=== PATIENT | female | born 1985 | race Caucasian/White ===

== ENCOUNTER 2020-08-25 12:53 | Inpatient (IN) | payer BC ==
[2020-08-25] MEDS ORDERED: KETOROLAC 15 MG/ML 1 ML VIAL IVP STA (14:17)
[2020-08-25 14:32] LABS: Basophils % (A) 0 %; Eosinophils # (A) 0.1 k/uL (0-0.7); Eosinophils % (A) 3 %; HCT 37.6 % (34.0-46.0); HGB 12.4 gm/dL (11.4-16.0); Lymphocytes # (A) 0.8 k/uL (1.0-4.8); Lymphocytes % (A) 18 %; MCH 29.6 pg (25.0-35.0); MCHC 33.1 g/dL (31.0-37.0); MCV 89.3 fL (80.0-100.0); Mean Platelet Volume 8.5; Monocytes # (A) 0.3 k/uL (0-1.0); Monocytes % (A) 6 %; Neutrophils # (A) 3.3 k/uL (1.3-7.7); Neutrophils % (A) 72 %; Platelet Count 204 k/uL (150-450); RBC 4.21 m/uL (3.80-5.40); RDW 13.6 % (11.5-15.5); WBC 4.6 k/uL (3.8-10.6)
--- NOTE | 2020-08-25 14:35 | ED ---
Upper Extremity HPI - General Chief Complaint: Extremity Injury, Upper Stated Complaint: Lt Elbow Pain Time Seen by Provider: 08/25/20 14:15 Source: patient Mode of arrival: ambulatory Limitations: no limitations - History of Present Illness Initial Comments: Patient is a 35-year-old female presenting to the emergency Department with complaints of increasing left elbow pain over the past week. Patient states that 4 days ago she noticed some discomfort in her left elbow, no obvious falls or trauma. She states she did extend her elbow that day and did pop however she was having pain before that. She denies any previous injuries or surgeries to her left elbow. She denies any fevers or chills. She states the pain has been rapidly progressing, she can no longer move it on her own, she noticed swelling and some redness as well. She's never had anything like this before. She denies taking any medications. She did try some ibuprofen a few days ago, did not help. She describes her pain as a 9/10 today. Any sort of movement increases the pain over 10. She is breast-feeding. She has no further complaints. Upon arrival to the ER, her vitals are stable. - Related Data Home Medications Medication Instructions Recorded Confirmed No Known Home Medications 08/25/20 08/25/20 Allergies Allergy/AdvReac Type Severity Reaction Status Date / Time amoxicillin Allergy Unknown Verified 08/25/20 14:44 Childhood Penicillins Allergy Rash/Hives Verified 08/25/20 14:44 Sulfa (Sulfonamide Allergy Unknown Verified 08/25/20 14:44 Antibiotics) Childhood Review of Systems ROS Statement: Those systems with pertinent positive or pertinent negative responses have been documented in the HPI. ROS Other: All systems not noted in ROS Statement are negative. Past Medical History Past Medical History: No Reported History History of Any Multi-Drug Resistant Organisms: None Reported Past Surgical History: Ear Surgery Past Psychological History: No Psychological Hx Reported Smoking Status: Never smoker Past Alcohol Use History: None Reported Past Drug Use History: None Reported General Exam - General Exam Comments Initial Comments: GENERAL: Patient is well-developed and well-nourished. Patient is nontoxic and in mild distress. HEAD: Atraumatic, normocephalic. EYES: Pupils equal round and reactive to light, extraocular movements intact, sclera anicteric, conjunctiva are normal. Eyelids were unremarkable. ENT: TMs normal, nares patent, oropharynx clear without exudates. Moist mucous membranes. NECK: Normal range of motion, supple without lymphadenopathy or JVD. LUNGS: Unlabored respirations. Breath sounds clear to auscultation bilaterally and equal. No wheezes rales or rhonchi. HEART: Regular rate and rhythm without murmurs, rubs or gallops. ABDOMEN: Soft, nontender, normoactive bowel sounds. No guarding, no rebound. No masses appreciated. : Deferred MUSCULOSKELETAL: Patient has severe tenderness all around left elbow, there is some moderate swelling around the joint, there is some erythema as well. Any sort of active r yudelka of motion increases her pain. 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 No clubbing or cyanosis. NEUROLOGICAL: Patient is alert and oriented x 3. Motor and sensory are also intact. Cranial nerves II through XII grossly intact. Symmetrical smile. Normal speech, normal gait. PSYCH: Normal mood, normal affect. SKIN: Warm, Dry, normal turgor, no rashes or lesions noted. Limitations: no limitations Course Vital Signs 08/25/20 08/25/20 08/25/20 13:04 16:07 18:42 Temperature 97.8 F 99.4 F 99.0 F Pulse Rate 89 67 89 Respiratory 19 16 16 Rate Blood Pressure 113/78 108/54 112/60 O2 Sat by Pulse 99 96 99 Oximetry Medical Decision Making - Medical Decision Making Patient is a 35-year-old female here for increasing left elbow pain over the past 4-5 days. She does have severe tenderness along the entire left elbow, moderate swelling and some erythema. Her pain increases severely with any sort of active range of motion. No fevers, her vitals are stable. Labs show a normal white count, ESR is 30, CRP is 7.1. Vital signs are stable. I discussed case with on-call orthopedics, Iris Oneill. Iris was able to come in and do an arthrocentesis of the left elbow joint. Given the results of aspiration, they did recommend surgical cleanout. Patient is in agreement with this plan of care. Patient will be admitted under Dr. Garcia with consult to Dr. Mariscal. Patient is in agreement with this plan of care. Case discussed with Dr. Fuller. - Lab Data Result diagrams: 08/25/20 14:18 08/25/20 14:18 Lab Results 08/25/20 08/25/20 08/25/20 Range/Units 14:18 14:18 14:18 WBC 4.6 (3.8-10.6) k/uL RBC 4.21 (3.80-5.40) m/uL Hgb 12.4 (11.4-16.0) gm/dL Hct 37.6 (34.0-46.0) % MCV 89.3 (80.0-100.0) fL MCH 29.6 (25.0-35.0) pg MCHC 33.1 (31.0-37.0) g/dL RDW 13.6 (11.5-15.5) % Plt Count 204 (150-450) k/uL MPV 8.5 Neutrophils % 72 % Lymphocytes % 18 % Monocytes % 6 % Eosinophils % 3 % Basophils % 0 % Neutrophils # 3.3 (1.3-7.7) k/uL Lymphocytes # 0.8 L (1.0-4.8) k/uL Monocytes # 0.3 (0-1.0) k/uL Eosinophils # 0.1 (0-0.7) k/uL Basophils # 0.0 (0-0.2) k/uL ESR 30 H (0-20) mm/hr Sodium 138 (137-145) mmol/L Potassium 4.4 (3.5-5.1) mmol/L Chloride 103 (98-107) mmol/L Carbon Dioxide 25 (22-30) mmol/L Anion Gap 10 mmol/L BUN 8 (7-17) mg/dL Creatinine 0.58 (0.52-1.04) mg/dL Est GFR (CKD-EPI)AfAm >90 (>60 ml/min/1.73 sqM) Est GFR (CKD-EPI)NonAf >90 (>60 ml/min/1.73 sqM) Glucose 77 (74-99) mg/dL Uric Acid 3.6 L (3.7-7.4) mg/dL Calcium 9.5 (8.4-10.2) mg/dL Total Bilirubin 1.8 H (0.2-1.3) mg/dL AST 33 (14-36) U/L ALT 32 (4-34) U/L Alkaline Phosphatase 114 (38-126) U/L C-Reactive Protein 7.1 H (<1.0) mg/dL Total Protein 7.4 (6.3-8.2) g/dL Albumin 4.5 (3.5-5.0) g/dL Coronavirus (PCR) (Not Detectd) 08/25/20 Range/Units 15:05 WBC (3.8-10.6) k/uL RBC (3.80-5.40) m/uL Hgb (11.4-16.0) gm/dL Hct (34.0-46.0) % MCV (80.0-100.0) fL MCH (25.0-35.0) pg MCHC (31.0-37.0) g/dL RDW (11.5-15.5) % Plt Count (150-450) k/uL MPV Neutrophils % % Lymphocytes % % Monocytes % % Eosinophils % % Basophils % % Neutrophils # (1.3-7.7) k/uL Lymphocytes # (1.0-4.8) k/uL Monocytes # (0-1.0) k/uL Eosinophils # (0-0.7) k/uL Basophils # (0-0.2) k/uL ESR (0-20) mm/hr Sodium (137-145) mmol/L Potassium (3.5-5.1) mmol/L Chloride (98-107) mmol/L Carbon Dioxide (22-30) mmol/L Anion Gap mmol/L BUN (7-17) mg/dL Creatinine (0.52-1.04) mg/dL Est GFR (CKD-EPI)AfAm (>60 ml/min/1.73 sqM) Est GFR (CKD-EPI)NonAf (>60 ml/min/1.73 sqM) Glucose (74-99) mg/dL Uric Acid (3.7-7.4) mg/dL Calcium (8.4-10.2) mg/dL Total Bilirubin (0.2-1.3) mg/dL AST (14-36) U/L ALT (4-34) U/L Alkaline Phosphatase (38-126) U/L C-Reactive Protein (<1.0) mg/dL Total Protein (6.3-8.2) g/dL Albumin (3.5-5.0) g/dL Coronavirus (PCR) Not Detected (Not Detectd) Disposition Clinical Impression: Septic joint of left elbow Disposition: ADMITTED IP TO THIS HOSP Condition: Stable Decision Date: 08/25/20 Decision Time: 16:16
[2020-08-25 14:47] LABS: ALT 32 U/L (4-34); AST 33 U/L (14-36); African American GFR (CKD) >90 (>60 ml/min/1.73 sqM); Albumin 4.5 g/dL (3.5-5.0); Alkaline Phosphatase 114 U/L (38-126); Anion Gap 10 mmol/L; Blood Urea Nitrogen 8 mg/dL (7-17); C Reactive Protein 7.1 mg/dL (<1.0); Calcium 9.5 mg/dL (8.4-10.2); Carbon Dioxide 25 mmol/L (22-30); Chloride 103 mmol/L (98-107); Glucose 77 mg/dL (74-99); Non-African American GFR(CKD) >90 (>60 ml/min/1.73 sqM); Potassium 4.4 mmol/L (3.5-5.1); Sodium 138 mmol/L (137-145); Total Bilirubin 1.8 mg/dL (0.2-1.3); Total Protein 7.4 g/dL (6.3-8.2)
--- NOTE | 2020-08-25 14:58 | XR ---
EXAMINATION TYPE: XR elbow complete LT DATE OF EXAM: 08/25/2020 CLINICAL HISTORY: Pain and swelling. Patient is unable to straighten elbow. No known injury. TECHNIQUE: Frontal, lateral and oblique images of the left elbow are obtained. COMPARISON: None FINDINGS: The study is limited in evaluation due to patient's inability to position. No definite evid ence of fracture or dislocation of the left elbow. There may be a slightly elevated anterior fat pad. No definite evidence of radial head fracture although occult fracture is not excluded.. The supracon dylar humerus appears unremarkable. The distal humerus appears unremarkable. IMPRESSION: 1. This study is limited due to patient's inability to position. There is appearance of a mildly elev ated anterior fat pad. No definite evidence of radial head fracture although an occult fracture is no t excluded.
[2020-08-25] MEDS ORDERED: MORPHINE SULFATE 4 MG/ML SYRINGE IVP STA (15:00)
[2020-08-25 16:11] LABS: Erythrocyte Sedimentation Rate 30 mm/hr (0-20)
[2020-08-25] MEDS ORDERED: KETOROLAC 15 MG/ML 1 ML VIAL IVP PRN (16:14)
[2020-08-25] MEDS ORDERED: MORPHINE SULFATE 4 MG/ML SYRINGE IV PRN (16:14)
[2020-08-25] MEDS ORDERED: ONDANSETRON 4 MG/2 ML VIAL IVP PRN (16:14)
[2020-08-25] MEDS ORDERED: NALOXONE 0.4 MG/ML 1 ML VIAL IV PRN (16:14)
[2020-08-25] MEDS ORDERED: VANCOMYCIN IV PER PHARMACY 1 EACH MISC MISCELLANE PRN ×2 (16:15→18:32)
[2020-08-25] MEDS ORDERED: LIDOCAINE 1% INJ 10MG/ML (20 ML MDV) SQ ONE (16:36)
[2020-08-25] MEDS ORDERED: VANCOMYCIN 1,250 MG in SODIUM CHLORIDE 0.9% 250 ML IVPB ONE (17:00)
[2020-08-25 17:50] LABS: Appearance,BF Cloudy; RBC, Body Fluid 13850 /uL
[2020-08-25 17:51] LABS: Nucleated Cells, Body Fluid 21650 /uL
[2020-08-25 17:58] LABS: Mononuclear WBC,Body Fluid 3 %; Polynuclear WBC,Body Fluid 97 %; Total Cells Counted,Body Fluid 100
--- NOTE | 2020-08-25 18:31 | P.HPOR ---
History of Present Illness H&P Date: 08/25/20 Chief Complaint: Left elbow pain Patient is a 35-year-old female presenting to the emergency Department with complaints of increasing left elbow pain over the past week. Patient states that 4 days ago she noticed some discomfort in her left elbow, no obvious falls or trauma. She states she did extend her elbow that day and did pop however she was having pain before that. She denies any previous injuries or surgeries to her left elbow. She denies any fevers or chills. She states the pain has been rapidly progressing, she can no longer move it on her own, she noticed swelling and some redness as well. She's never had anything like this before. She states that she did have a wound on whenever fingers on the right hand within the last month that was slow to heal and had a scab for a long time. There is no obvious infection at that time. She denies taking any medications. She did try some ibuprofen a few days ago, did not help. She describes her pain as a 9/10 today. Any sort of movement increases the pain over 10. She is breast- feeding. She has no further complaints. Upon arrival to the ER, her vitals are stable. We are consulted for orthopedic evaluation for possible septic arthritis of the elbow. Past Medical History Past Medical History: No Reported History History of Any Multi-Drug Resistant Organisms: None Reported Past Surgical History: Ear Surgery Past Psychological History: No Psychological Hx Reported Smoking Status: Never smoker Past Alcohol Use History: None Reported Past Drug Use History: None Reported Medications and Allergies Home Medications Medication Instructions Recorded Confirmed Type No Known Home Medications 08/25/20 08/25/20 History Allergies Allergy/AdvReac Type Severity Reaction Status Date / Time amoxicillin Allergy Unknown Verified 08/25/20 14:44 Childhood Penicillins Allergy Rash/Hives Verified 08/25/20 14:44 Sulfa (Sulfonamide Allergy Unknown Verified 08/25/20 14:44 Antibiotics) Childhood Physical Examination This is a pleasant 35-year-old female in no acute distress. She is alert and oriented to person place and time. Her is present at bedside. Exam of the left elbow reveals erythema and edema. There is an obvious joint effusion. She has significantly limited range of motion of the elbow. She is unable to extend or flex the elbow. She is holding the arm in about a 70 angle. She is able to move the wrist and fingers. Neurovascular status the upper extremity is intact. Results X-rays of the elbow reveal no bony abnormality. There is obvious joint effusion on x-ray. - Labs Labs: Abnormal Lab Results - Last 24 Hours (Table) 08/25/20 08/25/20 08/25/20 Range/Units 14:18 14:18 14:18 Lymphocytes # 0.8 L (1.0-4.8) k/uL ESR 30 H (0-20) mm/hr Uric Acid 3.6 L (3.7-7.4) mg/dL Total Bilirubin 1.8 H (0.2-1.3) mg/dL C-Reactive Protein 7.1 H (<1.0) mg/dL H & H 08/25/20 Range/Units 14:18 Hgb 12.4 (11.4-16.0) gm/dL Hct 37.6 (34.0-46.0) % Result Diagrams: 08/25/20 14:18 08/25/20 14:18 Assessment and Plan (1) Septic joint of left elbow Current Visit: Yes Status: Acute Code(s): M00.9 - PYOGENIC ARTHRITIS, UNSPECIFIED SNOMED Code(s): 866603695 Plan: The clinical and x-ray findings are discussed with the patient and her . I did aspirate the elbow obtained approximately 6 mL of a rust colored joint fluid. There is no obvious purulence to the fluid. Fluid was sent for stat Gram stain which was unable to be performed evening in our lab. Stat cell count revealed nucleated cells 21,650, red blood cells 13,850 with 97% polynuclear cells. The patient tolerated the aspiration well. Results were discussed with Dr. Dunlap who feels that the best course of action would be to take the patient to surgery for irrigation and debridement of the elbow and place her on IV antibiotics. The procedures discussed in detail including the possible risks and outcomes of surgery. She is aware that she most likely will be inpatient for at least 48 hours postoperatively.
[2020-08-25] MEDS ORDERED: KETOROLAC 15 MG/ML 1 ML VIAL ONE (19:21)
[2020-08-25] MEDS ORDERED: ONDANSETRON 4 MG/2 ML VIAL ONE (19:21)
[2020-08-25] MEDS ORDERED: LIDOCAINE 1% INJ 10MG/ML (20 ML MDV) ONE (19:21)
[2020-08-25] MEDS ORDERED: fentaNYL (PF) 50 MCG/ML 2 ML AMP ONE (19:21)
[2020-08-25] MEDS ORDERED: PROPOFOL 10 MG/ML 20 ML VIAL IV ONE (19:21)
[2020-08-25] MEDS ORDERED: DEXAMETHASONE SOD PHOSPHATE 4 MG/ML 1 ML VIAL ONE (19:21)
[2020-08-25] MEDS ORDERED: SUCCINYLCHOLINE CHLORIDE 100 MG/5 ML SYR IV ONE (19:21)
[2020-08-25] MEDS ORDERED: MIDAZOLAM 2 MG/2 ML VIAL ONE (19:21)
[2020-08-25] MEDS ORDERED: SODIUM CHLORIDE 0.9% 1,000 ML IV ONE (19:23)
[2020-08-25] MEDS ORDERED: CLINDAMYCIN 1,800 MG in SODIUM CHLORIDE 0.9% IRRIGATIO 3,000 ML IRRIGATION ONE (19:51)
[2020-08-25] MEDS ORDERED: HYDROmorphone 0.5 MG/0.5 ML SYRINGE IVP ONE (20:14)
[2020-08-25] MEDS ORDERED: ACETAMINOPHEN TAB 325 MG TAB PO PRN (20:58)
--- NOTE | 2020-08-25 21:07 | P.OP ---
Date of Procedure: 08/25/20 Procedure(s) Performed: PREOPERATIVE DIAGNOSES: 1. Left elbow possible septic arthritis POSTOPERATIVE DIAGNOSES: 1. Left elbow possible septic arthritis PROCEDURES PERFORMED: 1. Left elbow incision and drainage of joint with irrigation and closure over neil drain ANESTHESIA: Gen. MOONER: None COMPLICATIONS: None ESTIMATED BLOOD LOSS: 5 mL. DISPOSITION: To post-anesthesia care unit INDICATIONS: João knee is a 35-year-old female who has a history of swelling, redness, pain, limited motion, and high cell count neutrophilic effusion in the elbow on recent aspiration. She has high sed rate and c-reactive protein levels, although the WBC is normal. Recent aspirate from the elbow showed lynnette brown fluid but not gross pus. Considering the high neutrophil count and symptoms of redness, swelling, pain, and severe pain with motion, we have discussed that these symptoms may indicate a septic arthritis of the elbow. I have recommended surgical incision and drainage with irrigation and operative cultures for definitive management. I have discussed that if we do not proceed, there is a risk of severe post-infectious arthritis if this turns out to be a true bacterially-mediated septic arthritis. For these reasons and after full and detailed explanation of the risks and potential complications, the patient wishes to proceed with operative intervention. I have described the risks and potential complications as being inclusive of, but not limited to: Bleeding, infection, scarring, discomfort, blood vessel and/or nerve damage, persistent infection, osteomyelitis, involvement of the tendon of the triceps, stiffness, persistent swelling, weakness, sepsis, chronic wound, loss of limb and/or life, blood clot, pulmonary embolism, and other risks. The patient is aware these risks and wishes to proceed with surgery. Consent form has been signed. PROCEDURE: After appropriate consent was obtained, the patient was taken to the operating room placed in the supine position. Anesthesia was initiated, and after confirmation of adequate anesthesia, the patient was carefully positioned. Care was taken to make sure that all pressure points were adequately padded. Prepping and draping were completed in the usual aseptic fashion using ChloraPrep. Timeout was called, confirming patient identity, side, procedure, and administration of antibiotics. Antibiotics were held until cultures were performed. Arm was elevated and tourniquet was inflated to 250 mg. An incision was created directly over the posterolateral aspect of the elbow just posterior to the lateral epicondyle for a distance of approximately 4 cm. it was taken through the anconeus muscle and to the bulging joint capsule. This capsule, upon incision, yielded a moderate amount of lynnette brown colored fluid. Operative cultures were taken x2 and a small amount of mucus from the joint was also sent to pathology for analysis. The capsular incision was expanded so that full access to the radiocapitellar and ulnohumeral joints was established. Care was taken to stay posterior to the lateral epicondyle to avoid risk to the radial collateral ligament. Thorough irrigation with 3 liters of pulsatile saline containing 1800 mg clindamycin was delivered into the elbow joint. The visuali zed portion of the joint surfaces were noted to be pristine and without defect. Tourniquet was then deflated and hemostasis was obtained using electrocautery and local pressure. Wound was loosely closed over a Sassafras drain using interrupted 4-0 nylon sutures. Sterile dressing was applied followed by minimally compressive Bryan wrap and sling. Patient tolerated the procedure well and taken to recovery room in stable condition. Sponge and needle counts were correct
[2020-08-25] MEDS: IBUPROFEN 200 MG TAB PO SCH (21:54)
--- NOTE | 2020-08-25 22:01 | P.CONS ---
History of Present Illness - Reason for Consult Consult date: 08/25/20 Medical management Requesting physician: Todd Garcia - Chief Complaint Left elbow swelling - History of Present Illness Consultation: This is a pleasant 35-year-old patient who follows with Dr. Benito. Patient rather in good health and does not take any medications at home. About 4 days ago patient started noticing pain and discomfort in the left elbow on the out side and it progressively got worse swollen tender. Patient does not remember any local injury. Denies any callus on the elbow. Has not had any any fever and chills. Range of motion became limited at the elbow. Presented to the ER and was suspected to have septic arthritis. Dr. garcia was contacted from the ER. He took the patient to the operating room earlier today. And described a dark lynnette aspect of the joint. Patient's left elbow in the Bryan wrap left arm in a sling. Patient did have a infection of the distal phalanx of the right middle finger that healed about 7-10 days ago. No other source of infection the body's been determined. Patient also has a 1-year-old child that she is breast- feeding. Patient was ordered vancomycin from the ER patient has not received the same. Postprocedure patient is tired Review of systems: GEN.: Tired EYES: None HEENT: None NECK: None RESPIRATORY: None CARDIOVASCULAR: None GASTROINTESTINAL: None GENITOURINARY: None MUSCULOSKELETAL: As above LYMPHATICS: None HEMATOLOGICAL: None PSYCHIATRY: None NEUROLOGICAL: None Past medical history to include: Unremarkable. Social history: Does not smoke or drink alcohol. . 6 children at home Family history: Reviewed, noncontributory to presentation Physical examination: VITAL SIGNS: 97.7, 69, 16, 114/66, 98% on room air GENERAL: BMI 23.9, reclining in bed, tired. EYES: Pupils equal. Conjunctiva normal. HEENT: External appearance of nose and ears normal, oral cavity grossly normal. NECK: JVD not raised; masses not palpable. HEART: First and second heart sounds are normal; no edema. LUNGS: Respiratory rate normal; clear to auscultation. ABDOMEN: Soft, nontender, liver spleen not palpable, no masses palpable. PSYCH: Awake tired; mood and affect normal. MUSCULAR skeletal: Left elbow in the Bryan wrap, left arm in a sling NEUROLOGICAL: Cranial nerves grossly intact; no facial asymmetry, power and sensation grossly intact. LYMPHATICS: No lymph nodes palpable in the axilla and neck INVESTIGATIONS, reviewed in the clinical context: WBC 4.6 hemoglobin 12.4 platelets 204 ESR 13 potassium 4.4 creatinine 0.58 CRP 7.1 Left elbow fluid aspirated: Cloudy, RBC [id number] WBC 97 Coronavirus [PCF]: Not detected Assessment and plan: -This is a patient of 4 days of progressive pain swelling tenderness of the left elbow. In a patient rather good health. Patient had a lynnette-appearing fluid that was aspirated. Does not remember any local trauma. This could be a mild septic arthritis, the source of infection being the right middle distal phalanx. Patient now status post I&D. *Patient IV Ancef. Patient also has got pain medicines and IV fluids in place. -Mxcnxk-nryddli-6-year-old child. Discussed with pharmacy. Seems to give IV Ancef and told the patient to use a breast pump for the same. -DVT prophylaxis Subcu Lovenox Care was discussed with the patient at the bedside. Questions answered. Thank you Dr. Garcia Past Medical History Past Medical History: No Reported History History of Any Multi-Drug Resistant Organisms: None Reported Past Surgical History: Ear Surgery Past Psychological History: No Psychological Hx Reported Smoking Status: Never smoker Past Alcohol Use History: None Reported Past Drug Use History: None Reported Medications and Allergies Home Medications Medication Instructions Recorded Confirmed Type No Known Home Medications 08/25/20 08/25/20 History Allergies Allergy/AdvReac Type Severity Reaction Status Date / Time amoxicillin Allergy Unknown Verified 08/25/20 14:44 Childhood Penicillins Allergy Rash/Hives Verified 08/25/20 14:44 Sulfa (Sulfonamide Allergy Unknown Verified 08/25/20 14:44 Antibiotics) Childhood Physical Exam Vitals: Vital Signs Temp Pulse Pulse Resp BP BP Pulse Ox 08/25/20 20:46 69 16 114/66 98 08/25/20 20:31 71 16 108/69 99 08/25/20 20:15 70 16 105/57 95 08/25/20 20:07 97.7 F 88 14 106/59 98 08/25/20 18:42 99.0 F 89 16 112/60 99 08/25/20 16:07 99.4 F 67 16 108/54 96 08/25/20 13:04 97.8 F 89 19 113/78 99 Intake and Output 08/25/20 08/25/20 08/25/20 06:59 14:59 22:59 Intake Total 501 Output Total 5 Balance 496 Intake: IV 501 Output: Estimated Blood Loss 5 Other: Weight 61.235 kg Results CBC & Chem 7: 08/25/20 14:18 08/25/20 14:18 Labs: Abnormal Lab Results - Last 24 Hours (Table) 08/25/20 08/25/20 08/25/20 Range/Units 14:18 14:18 14:18 Lymphocytes # 0.8 L (1.0-4.8) k/uL ESR 30 H (0-20) mm/hr Uric Acid 3.6 L (3.7-7.4) mg/dL Total Bilirubin 1.8 H (0.2-1.3) mg/dL C-Reactive Protein 7.1 H (<1.0) mg/dL
[2020-08-26] MEDS ORDERED: VANCOMYCIN 1,000 MG in SODIUM CHLORIDE 0.9% 250 ML IVPB SCH (04:00)
[2020-08-26 06:10] LABS: Basophils % (A) 0 %; Eosinophils % (A) 0 %; HCT 38.3 % (34.0-46.0); HGB 12.4 gm/dL (11.4-16.0); Lymphocytes # (A) 0.4 k/uL (1.0-4.8); Lymphocytes % (A) 14 %; MCH 29.4 pg (25.0-35.0); MCHC 32.2 g/dL (31.0-37.0); MCV 91.3 fL (80.0-100.0); Mean Platelet Volume 8.1; Monocytes # (A) 0.1 k/uL (0-1.0); Monocytes % (A) 5 %; Neutrophils # (A) 2.4 k/uL (1.3-7.7); Neutrophils % (A) 81 %; Platelet Count 213 k/uL (150-450); RDW 13.6 % (11.5-15.5)
--- NOTE | 2020-08-26 08:32 | P.PN ---
Subjective Progress Note Date: 08/26/20 Principal diagnosis: Septic arthritis left elbow. This is a 35-year-old female who is postop day #1 status post incision and drainage with antibiotic solution irrigation left elbow. She is doing fairly well from an orthopedic standpoint. She has no new complaints or concerns. Pain is fairly well managed with Tylenol and ibuprofen. She is afebrile. Vital signs are stable. Objective - Vital Signs Vital signs: Vital Signs Temp 97.9 F 08/25/20 21:20 Pulse 45 L 08/26/20 02:00 Resp 16 08/25/20 21:20 BP 85/52 08/26/20 02:00 Pulse Ox 96 08/26/20 02:00 Intake & Output 08/25/20 08/26/20 08/26/20 18:59 06:59 18:59 Intake Total 501 Output Total 155 Balance 346 Weight 61.235 kg 61.235 kg Intake: IV 501 Output: Urine 150 Estimated Blood Loss 5 Other: # Voids 4 - Exam This is a pleasant 35-year-old female in no acute distress. She is alert and oriented 3. Exam of the left elbow after dressing is removed reveals less erythema today. Less swelling. The incision looks good. There is a Shruti drain exiting the proximal aspect of the incision. She has improved extension of the elbow today. She still has difficulty with flexion past about 70. She has full wrist and finger motion without difficulty or pain. Neurovascular status to the upper extremity is intact. - Labs CBC & Chem 7: 08/26/20 05:32 08/25/20 14:18 Labs: Abnormal Lab Results - Last 24 Hours (Table) 08/25/20 08/25/20 08/25/20 Range/Units 14:18 14:18 14:18 WBC (3.8-10.6) k/uL Lymphocytes # 0.8 L (1.0-4.8) k/uL ESR 30 H (0-20) mm/hr Uric Acid 3.6 L (3.7-7.4) mg/dL Total Bilirubin 1.8 H (0.2-1.3) mg/dL C-Reactive Protein 7.1 H (<1.0) mg/dL 08/26/20 Range/Units 05:32 WBC 3.0 L (3.8-10.6) k/uL Lymphocytes # 0.4 L (1.0-4.8) k/uL ESR (0-20) mm/hr Uric Acid (3.7-7.4) mg/dL Total Bilirubin (0.2-1.3) mg/dL C-Reactive Protein (<1.0) mg/dL Microbiology - Last 24 Hours (Table) 08/25/20 19:59 Tissue Culture - Preliminary Elbow - Left 08/25/20 17:17 Body Fluid Culture - Preliminary Aspirate 08/25/20 19:59 Anaerobic Culture - Preliminary Elbow - Left 08/25/20 19:59 Wound Culture - Preliminary Elbow - Left 08/25/20 19:59 Wound Culture - Preliminary Elbow - Left 08/25/20 19:59 Anaerobic Culture - Preliminary Elbow - Left Assessment and Plan (1) Septic joint of left elbow Current Visit: Yes Status: Acute Code(s): M00.9 - PYOGENIC ARTHRITIS, UNSPECIFIED SNOMED Code(s): 225311370 Plan: The clinical findings are discussed with the patient. Nursing staff is present at time of the exam. The incision is redressed with nonstick dressing, ABDs and Bryan wrap. We are waiting infectious disease consultation. The patient is anxious to get home as soon as possible. We did discuss that cultures typically take at least 48 hours to result. Once antibiotics are arranged for home she may be discharged from an orthopedic standpoint.
[2020-08-26] MEDS: IBUPROFEN 200 MG TAB PO SCH ×3 (08:37→20:33)
[2020-08-26] MEDS ORDERED: VANCOMYCIN IV PER PHARMACY 1 EACH MISC MISCELLANE PRN (12:44)
[2020-08-26] MEDS: VANCOMYCIN 1,000 MG in SODIUM CHLORIDE 0.9% 250 ML IVPB SCH ×2 (13:58→20:40)
--- NOTE | 2020-08-26 16:15 | P.PN ---
Progress Note - Text Progress Note Date: 08/26/20 - Chief Complaint Left elbow swelling Consultation: This is a pleasant 35-year-old patient who follows with Dr. Benito. Patient rather in good health and does not take any medications at home. About 4 days ago patient started noticing pain and discomfort in the left elbow on the outside and it progressively got worse swollen tender. Patient does not remember any local injury. Denies any callus on the elbow. Has not had any any fever and chills. Range of motion became limited at the elbow. Presented to the ER and was suspected to have septic arthritis. Dr. louise was contacted from the ER. He took the patient to the operating room earlier today. And described a dark leroy aspect of the joint. Patient's left elbow in the Bryan wrap left arm in a sling. Patient did have a infection of the distal phalanx of the right middle finger that healed about 7-10 days ago. No other source of infection the body's been determined. Patient also has a 1-year-old child that she is breast- feeding. Patient's left palpable was I&D last night. Leroy brown fluid was obtained. Today: Dressing was changed by orthopedics to the left elbow. Patient's form awake. Some pain in the left elbow. No fever no chills. Oral intake better. at the bedside with a 1-year-old child. Review of systems: Was done for constitutional, cardiovascular, GI, pulmonary. relevant finding as above Active Medications Acetaminophen (Acetaminophen Tab 325 Mg Tab) 325 mg PO Q4HR PRN PRN Reason: Fever and/ or Pain Vancomycin HCl 1,000 mg/ (Sodium Chloride) 250 mls @ 125 mls/hr IVPB Q8H [facility] Last Admin: 08/26/20 13:58 Dose: 125 mls/hr Documented by: Ibuprofen (Ibuprofen 200 Mg Tab) 200 mg PO TID [facility] Last Admin: 08/26/20 15:34 Dose: 200 mg Documented by: Naloxone HCl (Naloxone 0.4 Mg/Ml 1 Ml Vial) 0.2 mg IV Q2M PRN PRN Reason: Opioid Reversal Ondansetron HCl (Ondansetron 4 Mg/2 Ml Vial) 4 mg IVP Q8HR PRN PRN Reason: Nausea And Vomiting Past medical history to include: Unremarkable. Social history: Does not smoke or drink alcohol. . 6 children at home Family history: Reviewed, noncontributory to presentation Physical examination: VITAL SIGNS: 98.1, 55, 16, 84/53, 98% on room air GENERAL: reclining in bed, comfortable. EYES: Pupils equal. Conjunctiva normal. HEENT: External appearance of nose and ears normal, oral cavity grossly normal. NECK: JVD not raised; masses not palpable. HEART: First and second heart sounds are normal; no edema. LUNGS: Respiratory rate normal; clear to auscultation. ABDOMEN: Soft, nontender, liver spleen not palpable, no masses palpable. PSYCH: AO 3, mood and affect normal. MUSCULAR skeletal: Left elbow in the Bryan wrap, left arm in a sling INVESTIGATIONS, reviewed in the clinical context: August 26: WBC 3 hemoglobin 12.4 lymphocytes 0.4 ESR 41 CRP 7.4 WBC 4.6 hemoglobin 12.4 platelets 204 ESR 13 potassium 4.4 creatinine 0.58 CRP 7.1 Left elbow fluid aspirated: Cloudy, RBC 70249 WBC 97 Coronavirus [PCF]: Not detected Assessment and plan: -This is a patient of 4 days of progressive pain swelling tenderness of the left elbow. In a patient rather good health. Patient had a leroy-appearing fluid that was aspirated. Does not remember any local trauma. Questionable mild septic arthritis, the source of infection being the right middle distal phalanx. Patient now status post I&D. There is no fever. No chills. No white count. Started on IV vancomycin per ID. -Kqyphx-[id number]-4-year-old child. -DVT prophylaxis Subcu Lovenox -Elevated ESR, CRP Inflammatory markers Care was discussed with Dr. Kang from ID. Cultures pending. Patient does not have any medical issues and Jorge Luis from ID is already following the case we'll therefore sign off. Thank you Dr. Louise
[2020-08-26] MEDS ORDERED: HYDROcodone/APAP 5-325MG 1 EACH TAB PO PRN (16:25)
--- NOTE | 2020-08-26 21:28 | CONS ---
CONSULTATION DATE OF SERVICE: 08/26/2020. REASON FOR CONSULTATION: Left elbow septic arthritis. HISTORY OF PRESENT ILLNESS: The patient is a 35-year-old female, otherwise healthy, no chronic medical issues, presented to [facility] yesterday for evaluation of left elbow pain that started on Saturday that is 3 days before presentation to hospital. The patient mentioned she noticed some discomfort on Saturday without any history of any trauma, fall, she noted some discomfort more of a dull aching pain 2 to 3 out of 10. The patient did not take any picture of her elbow area. The next day one of her kids jumped on her. She was trying to extend her elbow and she heard a pop and since then the pain has gone increased in severity. The patient describes the pain to be more of a sharp with intensity almost 7 to 8 out of 10, no radiation. The patient went to see the chiropractor twice that day thinking he will correct her elbow without any relief. Chiropractor did the x-ray in the office. There is no evidence of any fracture. The patient did take some ibuprofen with some relief of the pain with persistent worsening of her symptoms, she presented to [facility] ER yesterday afternoon at 12:53 pm. The patient was evaluated by the ER physician on arrival to the ER. Patient was afebrile and no fever has been recorded since that. The patient did have a normal white count with no left shift. Kidney function was normal. Bilirubin is 1.8. The patient did have elbow x-rays done at this facility, which shows study was limited. There is mildly elevated anterior fat pad. No fracture. The patient was evaluated by Orthopedics, which documented swelling and redness of the left elbow and obvious chart fusion. She was taken to OR last night and the patient is status post left elbow incision and drainage of the joint with irrigation and closure, Shruti drain. There was evidence of lynnette brown fluid but no gross pus. Analysis of that fluid did show was cloudy with 13,000 red cells and 21,000 WBC, dominant PMNs. Cultures are currently pending. No blood culture done. She did receive a dose of vancomycin yesterday. Infectious Disease was consulted for further management of antibiotic therapy and concern for possible septic arthritis. REVIEW OF SYSTEMS: Positive points have been mentioned in HPI. Rest of the systems are negative. PAST MEDICAL HISTORY: No major illnesses. PAST SURGICAL: Did have ear surgery. SOCIAL HISTORY: Denies smoking, drinking or drug use. She is to her , does have 1-year-old baby that she is breast-feeding. ALLERGIES: AMOXICILLIN, PENICILLIN AND SULFA MOSTLY WITH RASH. NO HISTORY OF ANAPHYLAXIS. MEDICATIONS: The patient is currently on Zofran, Narcan, Advil and Tylenol with a dose of clindamycin and vancomycin received yesterday. PHYSICAL EXAMINATION: Her blood pressure is 98/63 with a pulse of 50, temperature 98.1. She is 93% on room air. GENERAL DESCRIPTION: The patient is a description is a middle-aged female up in the bed in no distress. No tachypnea or accessory muscles of respiration use. HEENT: Examination shows no pallor or scleral icterus. Oral mucous membrane is dry. NECK: Trachea central. LUNGS: Unlabored breathing. Clear to auscultation with no wheeze or crackles. HEART S1, S2. Regular rate and rhythm. ABDOMEN: Soft, no tenderness. No guarding. No rigidity. EXTREMITIES: No edema of the feet. Left elbow is currently dressed. Dressing was not removed. NEUROLOGICAL: Patient awake and alert and oriented times three. Mood and affect normal. LABS: Hemoglobin is 12.4, white count 3, admission white count 4.6 with no left shift. BUN of 8, creatinine 0.58. Synovial fluid was cloudy with 30,000 RBCs, 21,000 WBC. X-ray did not show evidence of fracture. DIAGNOSTIC IMPRESSION AND PLAN: 1. Patient presented to the hospital with left elbow pain that has been getting worse about 3 days before presentation to the hospital with no history of any trauma. The patient did mention bump sensation when she was in this patient with no fever, no elevated white count and the joint fluid white count is only 21,000. All these features will be going against septic arthritis though not entirely excluded and will need to cover for the Gram-positive skin brett of fluid likely pathogen. 2. Patient did have multiple antibiotic allergies that will limit the number of antibiotics safe to use. PLAN: 1. Blood cultures have been obtained this morning stat. 2. We will start the patient on vancomycin pharmacy to dose target of 15 while waiting for the culture to finalize. 3. Discharge antibiotic depending upon the culture report and clinical response. Thank you for this consultation. Will follow this patient along with you. Family at the bedside. They had multiple questions. Those were answered in Layman's terms. MMODL / IJN: [id number] /
[2020-08-27] MEDS: VANCOMYCIN 1,000 MG in SODIUM CHLORIDE 0.9% 250 ML IVPB SCH ×3 (04:50→20:56)
[2020-08-27] MEDS: IBUPROFEN 200 MG TAB PO SCH ×2 (09:16→10:03)
--- NOTE | 2020-08-27 13:18 | P.PN ---
Progress Note - Text Progress Note Date: 08/27/20 Orthopedics: History of present illness: Patient is a very pleasant 35-year-old female who is seen and examined at bedside for follow up evaluation of her left elbow. She is postoperative day #2 status post incision and drainage with antibiotic solution irrigation of the left elbow. She continues to keep a drain intact at the left elbow. She has had some difficulty with pain control in the evening. She tried [place] last night but did not like the side effects. Her medicine has been adjusted today with ibuprofen and Tylenol. She has been avoiding excessive activities with the left upper extremity. She continues to be seen by medicine and infectious disease. Cultures are currently ending at the left elbow. Depending on the culture results, it will be determined whether the patient will be able to be discharged home on oral medications or if she will need a PICC line. She has no other complaints at the bedside. Physical Exam: Patient is awake, alert, and oriented 3 Vital signs stable Good chest excursion with deep inspiration and expiration Dressing at the left elbow is removed during physical examination Shruti drain remains intact at the proximal aspect of the incision Sutures remain intact at the left elbow No significant erythema around the left elbow Mild swelling of the left elbow No significant active drainage from the surgical site incision site Increased left elbow pain with active range of motion of left elbow Patient is able to perform active range of motion of the left wrist and fingers without difficulty Neurovascular intact left upper extremity Dressing is reapplied with nonstick Telfa, drain sponge, 4 x 4, ABDs, and Bryan wrap Assessment: Postoperative day #2 status post incision and drainage with antibiotic solution irrigation of the left elbow Septic joint of the left elbow Left elbow pain Plan: 1. We will currently planned to continue conservative treatment and her left elbow. We're not currently planning for further surgical intervention at her left elbow. Dressing has been reapplied over the left elbow with nonstick Telfa, drain sponge, 4 x 4, ABDs, and Bryan wrap. She should keep this dressing clean, dry, and intact. Mobile drain to remain intact. We'll plan to discontinue this drain prior to discharge home. She should avoid any strenuous activities the left upper extremity. We will continue pain control with acetaminophen 650 mg by mouth every 6 hours as needed for pain and ibuprofen 400 mg by mouth 3 times a day as needed for pain. Patient will continue to be seen and examined by medicine and infectious disease. We are currently waiting for results of her cultures. Depending on the culture results, infectious disease will determine the appropriate outpatient antibiotic regimen and whether the medication will be able to give orally or if the patient will require PICC line placement prior to discharge.
[2020-08-27] MEDS: ACETAMINOPHEN TAB 325 MG TAB PO PRN ×2 (13:25→18:48)
[2020-08-27] MEDS: IBUPROFEN 400 MG TAB PO PRN ×2 (15:54→20:59)
[2020-08-27] MEDS ORDERED: MORPHINE SULFATE 4 MG/ML SYRINGE IVP PRN (16:34)
--- NOTE | 2020-08-27 18:22 | PN ---
PROGRESS NOTE DATE OF SERVICE: 08/27/2020 REASON FOR FOLLOWUP: Left elbow pain and question of septic arthritis. INTERVAL HISTORY: The patient is afebrile. Still complaining of pain to the left elbow area. No worsening. The patient denies any chest pain, shortness of breath, no cough. No abdominal pain or diarrhea. PHYSICAL EXAMINATION: Blood pressure 98/61 with pulse of 62, temperature 97.9. She is 99% on room air. General description is a middle-aged female up in the chair in no distress. Respiratory system: Unlabored breathing, clear to auscultation anteriorly. Heart S1, S2. Regular rate and rhythm. Abdomen soft, no tenderness. Left elbow did have some swelling. No significant redness, minimal blood-stained drainage in the [place] drain. LABS: Hemoglobin is 12.4, white count 3.0. Sedimentation rate is 41. CRP 7.4. Blood culture so far negative. Aspirate is so far negative. DIAGNOSTIC IMPRESSION AND PLAN: Patient with left elbow pain with concern for left arm hemarthrosis/septic arthritis, status post I and D. Cultures pending. Patient is covered with vancomycin to continue while waiting for the culture to finalize. She did have multiple questions, were answered. MMODL / IJN: [id number] /
[2020-08-27] MEDS ORDERED: VANCOMYCIN TROUGH DUE 1 EACH MISC MISCELLANE ONE (20:00)
[2020-08-27 20:18] LABS: African American GFR (CKD) >90 (>60 ml/min/1.73 sqM); Non-African American GFR(CKD) >90 (>60 ml/min/1.73 sqM)
[2020-08-27 20:33] LABS: T4, Free (Free Thyroxine) 1.27 ng/dL (0.78-2.19)
[2020-08-28] MEDS: ACETAMINOPHEN TAB 325 MG TAB PO PRN ×4 (00:24→22:00)
[2020-08-28] MEDS: VANCOMYCIN 1,000 MG in SODIUM CHLORIDE 0.9% 250 ML IVPB SCH ×3 (05:51→21:16)
[2020-08-28] MEDS: IBUPROFEN 400 MG TAB PO PRN ×3 (05:57→22:00)
--- NOTE | 2020-08-28 11:41 | P.PN ---
Progress Note - Text Progress Note Date: 08/28/20 Postoperative day #2 Patient is seen and examined today at bedside. The patient has some pain around the surgical site as expected. Pain is being controlled with medication. She is doing better today with alternating Tylenol and Motrin for pain. She denies any numbness tingling. She denies any fevers. Physical Exam Afebrile with stable vital signs Abdomen is soft nontender. Chest has good excursion deep and space expiration The incision site is clean dry and intact. No erythema there is no purulence. There is some old blood on the dressing but there is no active bleeding. There is no erythema. There is no pus there is no purulence. The drain is intact and I went ahead and pulled the drain today. There is no further fluid. The sutures are intact. It was redressed with a dry dressing. Extremities have not had neurologic change from prior to surgery. Calves and thighs were soft nontender without evidence of DVT. Assessment/Plan Postoperative day #2 status post irrigation and debridement excisional debridement of left elbow presented infection and effusion Patient is progressing as expected from the surgery. Her pain is better controlled today The cultures have been negative for 24 hours. The aspiration initially is negative for 48 hours. We will await final cultures and infectious disease recommendations for continued medical management. We do not have any further plans of surgical intervention. The drain is pulled and the wound looks clear. It is okay To do some gentle motion at her elbow but she should keep the dressing dry and intact. We will continue to increase the patient's mobilization with therapy. From an orthopedic standpoint it'll be okay for her to be discharged when she is clear with infectious disease We will continue pain control with oral or IV medications. We'll continue to follow patient closely.
--- NOTE | 2020-08-28 19:36 | PN ---
PROGRESS NOTE DATE OF SERVICE: 08/28/2020 REASON FOR FOLLOWUP: Question of left elbow septic arthritis. INTERVAL HISTORY: Patient remains to be afebrile. Still complaining of pain to the left elbow area which is controlled with around the clock Tylenol the patient has been taking. The patient denies having any chest pain, shortness of breath or cough. No nausea, no vomiting. No abdominal pain or diarrhea. PHYSICAL EXAMINATION: Blood pressure 105/73 with a pulse of 88. Temperature is 97.9. She is 99% on room air. General description is a middle-aged female up in the chair in no distress. Respiratory system: Unlabored breathing, clear to auscultation anteriorly. Heart S1, S2. Regular rate and rhythm. Abdomen soft, no tenderness. Left elbow is currently dressed up. No obvious drainage on the dressing. Moville drain has been discontinued by Ortho. LABORATORY DATA: No new labs have been obtained today. Cultures remain to be negative. DIAGNOSTIC IMPRESSION AND PLAN: Patient with left elbow pain and swelling status post aspirate followed by I and D with concern for possible septic arthritis. Culture remains to be negative. The patient was afebrile and no fever during this hospital stay. White count is normal goes against a septic picture. If the culture remains to be negative, recommend antibiotic and treatment with mostly antiinflammatory. This will be discussed further with Orthopedics. Family at the bedside. They had multiple questions that were answered. MMODL / IJN: [id number] /
[2020-08-29] MEDS: IBUPROFEN 400 MG TAB PO PRN ×2 (01:49→10:52)
[2020-08-29] MEDS: VANCOMYCIN 1,000 MG in SODIUM CHLORIDE 0.9% 250 ML IVPB SCH (04:56)
[2020-08-29] MEDS: ACETAMINOPHEN TAB 325 MG TAB PO PRN (06:18)
[2020-08-29 08:11] LABS: Basophils % (A) 0 %; Eosinophils # (A) 0.2 k/uL (0-0.7); Eosinophils % (A) 5 %; HCT 31.5 % (34.0-46.0); Lymphocytes # (A) 0.8 k/uL (1.0-4.8); Lymphocytes % (A) 22 %; MCH 30.9 pg (25.0-35.0); MCHC 34.9 g/dL (31.0-37.0); MCV 88.7 fL (80.0-100.0); Mean Platelet Volume 7.7; Monocytes # (A) 0.3 k/uL (0-1.0); Monocytes % (A) 8 %; Neutrophils # (A) 2.3 k/uL (1.3-7.7); Neutrophils % (A) 64 %; Platelet Count 212 k/uL (150-450); RBC 3.55 m/uL (3.80-5.40); RDW 13.1 % (11.5-15.5); WBC 3.6 k/uL (3.8-10.6)
[2020-08-29 08:25] LABS: African American GFR (CKD) >90 (>60 ml/min/1.73 sqM); Anion Gap 4 mmol/L; Blood Urea Nitrogen 6 mg/dL (7-17); C Reactive Protein 3.2 mg/dL (<1.0); Calcium 8.9 mg/dL (8.4-10.2); Carbon Dioxide 28 mmol/L (22-30); Chloride 107 mmol/L (98-107); Glucose 84 mg/dL (74-99); Non-African American GFR(CKD) >90 (>60 ml/min/1.73 sqM); Potassium 4.1 mmol/L (3.5-5.1); Sodium 139 mmol/L (137-145); Uric Acid 3.4 mg/dL (3.7-7.4)
[2020-08-29 08:33] VITALS: BP 112/67; PULSE 72; RESP 18; TEMP 98.2
[2020-08-29] MEDS ORDERED: CEPHALEXIN 250 MG CAP PO STA (11:08)
--- NOTE | 2020-08-29 12:15 | P.DS ---
Providers Date of admission: 08/25/20 16:14 Expected date of discharge: 08/29/20 Attending physician: Todd Garcia Consults: 08/25/20 18:33 Consult Physician Urgent Consulting Provider: Tariq Kang Consult Reason/Comments: Septic arthritis left elbow Do you want consulting provider notified?: Yes 08/25/20 18:34 Consult Physician Urgent Consulting Provider: Nikhil Mariscal Consult Reason/Comments: medical managment Do you want consulting provider notified?: Already Contacted 08/25/20 21:07 Consult Physician Routine Consulting Provider: Nikhil Mariscal Consult Reason/Comments: medical management Do you want consulting provider notified?: Yes Primary care physician: Magalys Corral - Discharge Diagnosis(es) (1) Septic joint of left elbow Current Visit: Yes Status: Acute Hospital Course: Patient is a 35-year-old female presenting to the emergency Department with complaints of increasing left elbow pain over the past week. Patient states that she noticed some discomfort in her left elbow, no obvious falls or trauma. She states she did extend her elbow that day and did pop however she was having pain before that. She denies any previous injuries or surgeries to her left elbow. She denies any fevers or chills. She states the pain has been rapidly progressing, she can no longer move it on her own, she noticed swelling and some redness as well. She's never had anything like this before. She states that she did have a wound on whenever fingers on the right hand within the last month that was slow to heal and had a scab for a long time. There is no obvious infection at that time. She denies taking any medications. She did try some ibuprofen a few days ago, did not help. She describes her pain as a 9/10 on admission. Any sort of movement increases the pain over 10. She is breast- feeding. She has no further complaints. Upon arrival to the ER, her vitals are stable. We are consulted for orthopedic evaluation for possible septic arthritis of the elbow. The patient was taken to the OR on 08/25/2020 for incision and drainage with antibiotic irrigation to the left elbow. Deep cultures were taken at that time. All cultures have come back showing no growth at 72 hours. Gram stain of all been negative. Blood cultures are also negative for growth at 48 hours. Labs showed a normal white count. She has elevated TSH at 6.9. So far other inflammatory labs are negative. The patient is doing well on postoperative day #3. She may be discharged from the orthopedic standpoint today. Patient Condition at Discharge: Stable Plan - Discharge Summary New Discharge Prescriptions: New HYDROcodone/APAP 5-325MG [[place] 5] 1 each PO Q6HR PRN #12 tab PRN Reason: Pain Ibuprofen 600 mg PO Q8H PRN #60 tab PRN Reason: Pain Acetaminophen Tab [Tylenol Tab] 500 mg PO Q6H PRN #60 tablet PRN Reason: Pain Cephalexin [Keflex] 500 mg PO Q8HR 10 Days #30 cap Discharge Medication List Acetaminophen Tab [Tylenol Tab] 500 mg PO Q6H PRN #60 tablet 08/28/20 [Rx] HYDROcodone/APAP 5-325MG [[place] 5] 1 each PO Q6HR PRN #12 tab 08/28/20 [Rx] Ibuprofen 600 mg PO Q8H PRN #60 tab 08/28/20 [Rx] Cephalexin [Keflex] 500 mg PO Q8HR 10 Days #30 cap 08/29/20 [Rx] Follow up Appointment(s)/Referral(s): Magalys Corral DO [Primary Care Provider] - 1-2 days Todd Garcia MD [STAFF PHYSICIAN] - 3 Days (Please obtain prior authorization from health insurance before office visit. Saturday09-01-2020 AT 1:15pm ) Tariq Kang MD [STAFF PHYSICIAN] - 09/12/20 3:15 pm Activity/Diet/Wound Care/Special Instructions: Change dressing daily. Discharge Disposition: HOME SELF-CARE
--- NOTE | 2020-08-29 13:48 | PN ---
PROGRESS NOTE DATE OF SERVICE: 08/29/2020 REASON FOR FOLLOWUP: Left elbow pain and question of septic arthritis. INTERVAL HISTORY: Patient is afebrile. The patient's pain to the left elbow is currently controlled. The patient denies any chest pain, shortness of breath, cough, no abdominal pain, or any diarrhea. PHYSICAL EXAMINATION: Blood pressure 120/67, pulse of 73, temperature 98.2. General description: The patient is a middle-aged female up in the chair in no distress. RESPIRATORY SYSTEM: Unlabored breathing, clear to auscultation. HEART: S1, S2. Regular rate and rhythm. ABDOMEN: Soft, no tenderness. Left elbow swelling and redness has improved. No drainage was noticed. LABS: Hemoglobin 11, white count 3.6, creatinine 0.47, CRP down to 3.2. Cultures remain to be negative. DIAGNOSTIC IMPRESSION AND PLAN: Patient with left elbow pain concerning for septic arthritis. However, clinically she is not behaving as white count and no fever. Cultures negative. Did have recent surgery. Plan I and D of the left elbow and short course of oral Keflex. Does have history of PENICILLIN ALLERGY with rash, give a dose of Keflex before discharge and close outpatient followup. Patient to advise us of any worsening swelling or redness to the elbow or drainage or notices any fever, to come to the ER right away. Plan of care discussed with Orthopedics. CORRIE / FABIANA: [id number] /
[2020-08-29 16:58] LABS: Cyclic Citrull Pep IgG Unit <0.5 U/mL; Cyclic Citrullinated Pep IgG NEGATIVE (NEGATIVE)
== END 2020-08-29 12:23 | disposition home or self-care (01) | DRG 508 ==
LOC: EC 12:53 → 6PED 16:14
PROVIDERS: ADMIT Orthopaedic Surgery; ATTEND Orthopaedic Surgery
PROC: 0R9M00Z Drainage of Left Elbow Joint with Drainage Device, Open Approach (ICD-10-PCS; principal; 2020-08-25 19:25)
DX: M00.9 Pyogenic arthritis, unspecified (principal); Z88.0 Allergy status to penicillin; Z88.1 Allergy status to other antibiotic agents; Z88.2 Allergy status to sulfonamides; Z20.822 Contact with and (suspected) exposure to COVID-19
CPT/HCPCS: 36415; 80048; 80053; 80202; 82565; 84439; 84443; 84481; 84550; 85025; 85652; 86038; 86140; 86200; 86769; 87040; 87070; 87075; 87205; 87635; 89050; 89060; 96374; 96375; 99285